=== PATIENT | male | born 1930 | race Caucasian/White ===

== ENCOUNTER → 2016-04-23 | Outpatient (CLI) | payer MEDICARE, OTHER ==
[~2016-04-23] MED LIST: AMILORIDE/HCTZ1 TAB PO; ASPIRIN 81M81 MG/TA2 PO; ASPIRIN E.C. 8181 MG PO; BETAPACE 80MG80 MG PO; CARDI-OMEGA1000 MG PO; COLACE 100100 MG/CAP PO; COREG 25MG25 MG/TAB PO; COREG CR20 MG PO; COUMADIN 22.5 MG/TAB PO; COUMADIN 3MG3 MG/TAB PO; CRESTOR 10MG10 MG PO; CRESTOR20 MG PO; EFFIENT10 MG PO; EXFORGE 10 MG-31 TAB PO; FOLIC ACID 11 MG/TA1 PO; FOLIC ACID800 MCG PO; GLUCOPHAGE500 MG/TAB PO; KEPPRA 500MG500 MG PO; KLOR-CON M2020 MEQ PO; LASIX 40MG TABL40 MG PO; NIASPAN1000 MG PO; NITROSTAT0.4 MG/TAB SL; OMEGA 31000 MG PO; TYLENOL 325MG325 MG PO; VASOTEC 2.2.5 MG/TAB PO; VASOTEC20 MG PO; ZYLOPRIM 300MG300 MG PO
[2016-04-23 10:29] LABS: INR 2.2 (0.8-3.0); PROTHROMBIN TIME 24.8 SECONDS (9.7-12.8)
== END ==
LOC: COL.LAB 09:24
PROVIDERS: Internal Medicine
DX: I48.0 Paroxysmal atrial fibrillation (principal)

== ENCOUNTER 2016-04-26 11:00 | Outpatient (RCR) | payer MEDICARE, OTHER | END 2016-04-29 08:46 | disposition still patient (30) | LOC: MKS.ESL.PT 11:00 | DX: M25.512 Pain in left shoulder (principal) | CPT/HCPCS: G8979-GP; G8980-GP; G8987-GP; G8988-GP ==

== ENCOUNTER → 2016-05-11 | Outpatient (REF) | LOC: ZLAB.WCH 11:38 | DX: Z02.89 Encounter for other administrative examinations (principal) ==

== ENCOUNTER → 2016-05-21 | Outpatient (CLI) | payer MEDICARE, OTHER ==
[2016-05-21 11:04] LABS: INR 2.1 (0.8-3.0); PROTHROMBIN TIME 24.2 SECONDS (9.7-12.8)
== END ==
LOC: COL.LAB 10:33
PROVIDERS: Internal Medicine
DX: I48.0 Paroxysmal atrial fibrillation (principal)

== ENCOUNTER → 2016-06-17 | Outpatient (CLI) | payer MEDICARE, OTHER ==
[2016-06-17 12:35] LABS: INR 2.6 (0.8-3.0); PROTHROMBIN TIME 29.5 SECONDS (9.7-12.8)
== END ==
LOC: COL.LAB 10:19
PROVIDERS: Internal Medicine
DX: I48.0 Paroxysmal atrial fibrillation (principal)

== ENCOUNTER → 2016-06-21 | Outpatient (CLI) | payer MEDICARE, OTHER | LOC: COL.VAS 08:32 | DX: I63.412 Cerebral infarction due to embolism of left middle cerebral artery (principal) ==

== ENCOUNTER → 2016-07-16 | Outpatient (CLI) | payer MEDICARE, OTHER ==
[2016-07-16 10:42] LABS: INR 2.6 (0.8-3.0); PROTHROMBIN TIME 29.7 SECONDS (9.7-12.8)
[2016-07-16 10:49] LABS: CREATININE, serum 1.33 mg/dL (0.66-1.25); MAGNESIUM 2.1 mg/dL (1.6-2.3); POTASSIUM 3.9 mmol/L (3.4-5.0)
== END ==
LOC: COL.LAB 09:43
PROVIDERS: Internal Medicine
DX: I25.10 Atherosclerotic heart disease of native coronary artery without angina pectoris (principal); I48.0 Paroxysmal atrial fibrillation; E11.9 Type 2 diabetes mellitus without complications

== ENCOUNTER → 2016-08-13 | Outpatient (CLI) | payer MEDICARE, OTHER ==
[2016-08-13 11:48] LABS: INR 2.1 (0.8-3.0); PROTHROMBIN TIME 23.8 SECONDS (9.7-12.8)
== END ==
LOC: COL.LAB 09:26
PROVIDERS: Internal Medicine
DX: I48.0 Paroxysmal atrial fibrillation (principal)

== ENCOUNTER → 2016-09-10 | Outpatient (CLI) | payer MEDICARE, OTHER ==
[2016-09-10 09:40] LABS: INR 2.5 (0.8-3.0); PROTHROMBIN TIME 28.2 SECONDS (9.7-12.8)
== END ==
LOC: COL.LAB 09:10
PROVIDERS: Internal Medicine
DX: I48.0 Paroxysmal atrial fibrillation (principal)

== ENCOUNTER → 2016-10-08 | Outpatient (CLI) | payer MEDICARE, OTHER ==
[2016-10-08 10:16] LABS: INR 2.4 (0.8-3.0); PROTHROMBIN TIME 27.5 SECONDS (9.7-12.8)
== END ==
LOC: COL.LAB 09:26
PROVIDERS: Internal Medicine
DX: I48.0 Paroxysmal atrial fibrillation (principal)

== ENCOUNTER → 2016-11-05 | Outpatient (CLI) | payer MEDICARE, OTHER ==
[2016-11-05 10:42] LABS: INR 2.4 (0.8-3.0); PROTHROMBIN TIME 27.7 SECONDS (9.7-12.8)
== END ==
LOC: COL.LAB 09:59
PROVIDERS: Internal Medicine
DX: I48.91 Unspecified atrial fibrillation (principal)

== ENCOUNTER → 2016-12-03 | Outpatient (CLI) | payer MEDICARE, OTHER ==
[2016-12-03 10:54] LABS: INR 2.5 (0.8-3.0); PROTHROMBIN TIME 28.8 SECONDS (9.7-12.8)
== END ==
LOC: COL.LAB 09:50
PROVIDERS: Internal Medicine
DX: I48.91 Unspecified atrial fibrillation (principal)

== ENCOUNTER → 2016-12-31 | Outpatient (CLI) | payer MEDICARE, OTHER ==
[2016-12-31 11:40] LABS: INR 2.1 (0.8-3.0); PROTHROMBIN TIME 24.1 SECONDS (9.7-12.8)
== END ==
LOC: COL.LAB 09:59
PROVIDERS: Internal Medicine
DX: I48.91 Unspecified atrial fibrillation (principal)

== ENCOUNTER → 2017-01-28 | Outpatient (CLI) | payer MEDICARE, OTHER ==
[2017-01-28 10:37] LABS: INR 2.5 (0.8-3.0)
== END ==
LOC: COL.LAB 10:06
PROVIDERS: Internal Medicine
DX: I48.0 Paroxysmal atrial fibrillation (principal)

== ENCOUNTER → 2017-02-14 | Outpatient (REF) | LOC: ZLAB.WCH 20:28 | DX: Z01.89 Encounter for other specified special examinations (principal) ==

== ENCOUNTER → 2017-03-25 | Outpatient (CLI) | payer MEDICARE, OTHER ==
[2017-03-25 10:28] LABS: INR 2.4 (0.8-3.0)
== END ==
LOC: COL.LAB 10:00
PROVIDERS: Internal Medicine
DX: I48.0 Paroxysmal atrial fibrillation (principal)

== ENCOUNTER → 2017-04-22 | Outpatient (CLI) | payer MEDICARE, OTHER ==
[2017-04-22 11:10] LABS: INR 2.4 (0.8-3.0); PROTHROMBIN TIME 28.4 SECONDS (9.7-12.8)
== END ==
LOC: COL.LAB 10:39
PROVIDERS: Internal Medicine
DX: I48.0 Paroxysmal atrial fibrillation (principal)

== ENCOUNTER → 2017-05-27 | Outpatient (CLI) | payer MEDICARE, OTHER ==
[2017-05-27 10:41] LABS: INR 2.7 (0.8-3.0); PROTHROMBIN TIME 31.6 SECONDS (9.7-12.8)
== END ==
LOC: COL.LAB 09:55
PROVIDERS: Internal Medicine
DX: I48.0 Paroxysmal atrial fibrillation (principal)

== ENCOUNTER → 2017-06-24 | Outpatient (CLI) | payer MEDICARE, OTHER ==
[2017-06-24 11:08] LABS: INR 2.3 (0.8-3.0); PROTHROMBIN TIME 26.6 SECONDS (9.7-12.8)
== END ==
LOC: COL.LAB 10:17
PROVIDERS: Internal Medicine
DX: I48.0 Paroxysmal atrial fibrillation (principal)

== ENCOUNTER 2017-06-27 09:14 | Emergency (ER) | payer MEDICARE, OTHER ==
[~2017-06-27] VITALS: Ht 180.3 cm; Wt 78.2 kg
[2017-06-27 09:30] VITALS: BP 127/56; PULSE 57; TEMP 98.9
[2017-06-27] MEDS ORDERED: AMOXICILLIN 8751 TAB PO (10:01)
== END 2017-06-27 10:13 | disposition home or self-care (01) ==
LOC: COL.ER 09:14
DX: S80.812A Abrasion, left lower leg, initial encounter (principal); L08.9 Local infection of the skin and subcutaneous tissue, unspecified; Z79.01 Long term (current) use of anticoagulants; Z79.82 Long term (current) use of aspirin; W22.8XXA Striking against or struck by other objects, initial encounter; Y92.009 Unspecified place in unspecified non-institutional (private) residence as the place of occurrence of the external cause

== ENCOUNTER → 2017-07-22 | Outpatient (CLI) | payer MEDICARE, OTHER ==
[~2017-07-22] MED LIST changes: +AMOXICILLIN 8751 TAB PO
[2017-07-22 10:30] LABS: INR 2.5 (0.8-3.0); PROTHROMBIN TIME 28.9 SECONDS (9.7-12.8)
== END ==
LOC: COL.LAB 10:01
PROVIDERS: Internal Medicine
DX: I48.0 Paroxysmal atrial fibrillation (principal)

== ENCOUNTER → 2017-08-19 | Outpatient (CLI) | payer MEDICARE, OTHER ==
[2017-08-19 09:52] LABS: INR 2.5 (0.8-3.0); PROTHROMBIN TIME 29.9 SECONDS (9.7-12.8)
== END ==
LOC: COL.LAB 09:14
PROVIDERS: Internal Medicine
DX: I48.0 Paroxysmal atrial fibrillation (principal)

== ENCOUNTER → 2017-09-16 | Outpatient (CLI) | payer MEDICARE, OTHER ==
[2017-09-16 10:38] LABS: INR 2.1 (0.8-3.0); PROTHROMBIN TIME 23.9 SECONDS (9.7-12.8)
== END ==
LOC: COL.LAB 09:12
PROVIDERS: Internal Medicine
DX: I48.0 Paroxysmal atrial fibrillation (principal)

== ENCOUNTER → 2017-10-07 | Outpatient (CLI) | payer MEDICARE, OTHER ==
[2017-10-07 09:52] LABS: INR 2.2 (0.8-3.0); PROTHROMBIN TIME 25.1 SECONDS (9.7-12.8)
== END ==
LOC: COL.LAB 09:29
PROVIDERS: Internal Medicine
DX: I48.91 Unspecified atrial fibrillation (principal)

== ENCOUNTER → 2017-10-28 | Outpatient (CLI) | payer MEDICARE, OTHER ==
[2017-10-28 11:24] LABS: INR 2.4 (0.8-3.0); PROTHROMBIN TIME 27.7 SECONDS (9.7-12.8)
== END ==
LOC: COL.LAB 10:55
PROVIDERS: Internal Medicine
DX: I48.0 Paroxysmal atrial fibrillation (principal)

== ENCOUNTER → 2017-11-06 | Outpatient (REF) | LOC: ZLAB.WCH 18:19 | DX: Z01.89 Encounter for other specified special examinations (principal) ==

== ENCOUNTER → 2017-11-25 | Outpatient (CLI) | payer MEDICARE, OTHER ==
[2017-11-25 10:26] LABS: INR 2.5 (0.8-3.0); PROTHROMBIN TIME 28.8 SECONDS (9.7-12.8)
== END ==
LOC: COL.LAB 10:01
PROVIDERS: Internal Medicine
DX: I48.91 Unspecified atrial fibrillation (principal)

== ENCOUNTER → 2017-12-23 | Outpatient (CLI) | payer MEDICARE, OTHER ==
[2017-12-23 10:19] LABS: INR 1.9 (0.8-3.0); PROTHROMBIN TIME 21.4 SECONDS (9.7-12.8)
== END ==
LOC: COL.LAB 09:48
PROVIDERS: Internal Medicine
DX: I48.0 Paroxysmal atrial fibrillation (principal)

== ENCOUNTER → 2018-01-20 | Outpatient (CLI) | payer MEDICARE, OTHER ==
[2018-01-20 10:45] LABS: INR 2.5 (0.8-3.0); PROTHROMBIN TIME 28.3 SECONDS (9.7-12.8)
== END ==
LOC: COL.LAB 10:03
PROVIDERS: Internal Medicine
DX: I48.0 Paroxysmal atrial fibrillation (principal)

== ENCOUNTER → 2018-02-17 | Outpatient (CLI) | payer MEDICARE, OTHER ==
[2018-02-17 10:41] LABS: INR 2.3 (0.8-3.0); PROTHROMBIN TIME 25.9 SECONDS (9.7-12.8)
== END ==
LOC: COL.LAB 09:59
PROVIDERS: Internal Medicine
DX: I48.0 Paroxysmal atrial fibrillation (principal)

== ENCOUNTER → 2018-03-17 | Outpatient (CLI) | payer MEDICARE, OTHER ==
[2018-03-17 11:17] LABS: INR 2.3 (0.8-3.0); PROTHROMBIN TIME 26.6 SECONDS (9.7-12.8)
== END ==
LOC: COL.LAB 10:23
PROVIDERS: Internal Medicine
DX: I48.91 Unspecified atrial fibrillation (principal)

== ENCOUNTER → 2018-04-02 | Outpatient (REF) | LOC: ZLAB.WCH 19:01 | DX: Z01.89 Encounter for other specified special examinations (principal) ==

== ENCOUNTER → 2018-04-15 | Outpatient (CLI) | payer MEDICARE, OTHER ==
[2018-04-15 11:15] LABS: INR 2.3 (0.8-3.0); PROTHROMBIN TIME 25.9 SECONDS (9.7-12.8)
== END ==
LOC: COL.LAB 10:24
PROVIDERS: Internal Medicine
DX: I48.91 Unspecified atrial fibrillation (principal)

== ENCOUNTER → 2018-05-12 | Outpatient (CLI) | payer MEDICARE, OTHER ==
[2018-05-12 11:23] LABS: INR 2.4 (0.8-3.0); PROTHROMBIN TIME 27.2 SECONDS (9.7-12.8)
== END ==
LOC: COL.LAB 10:16
PROVIDERS: Internal Medicine
DX: I48.91 Unspecified atrial fibrillation (principal)

== ENCOUNTER → 2018-06-09 | Outpatient (CLI) | payer MEDICARE, OTHER ==
[2018-06-09 11:03] LABS: PROTHROMBIN TIME 22.4 SECONDS (9.7-12.8)
== END ==
LOC: COL.LAB 10:03
PROVIDERS: Internal Medicine
DX: I48.91 Unspecified atrial fibrillation (principal)

== ENCOUNTER → 2018-07-07 | Outpatient (CLI) | payer MEDICARE, OTHER ==
[2018-07-07 10:45] LABS: INR 2.4 (0.8-3.0); PROTHROMBIN TIME 27.6 SECONDS (9.7-12.8)
== END ==
LOC: COL.LAB 10:02
PROVIDERS: Internal Medicine
DX: I48.91 Unspecified atrial fibrillation (principal)

== ENCOUNTER → 2018-08-04 | Outpatient (CLI) | payer MEDICARE, OTHER ==
[2018-08-04 10:25] LABS: PROTHROMBIN TIME 33.8 SECONDS (9.7-12.8)
== END ==
LOC: COL.LAB 09:48
PROVIDERS: Internal Medicine
DX: I48.91 Unspecified atrial fibrillation (principal)

== ENCOUNTER → 2018-08-25 | Outpatient (CLI) | payer MEDICARE, OTHER ==
[2018-08-25 10:29] LABS: INR 2.9 (0.8-3.0)
== END ==
LOC: COL.LAB 09:46
PROVIDERS: Internal Medicine
DX: I48.91 Unspecified atrial fibrillation (principal)

== ENCOUNTER → 2018-09-22 | Outpatient (CLI) | payer MEDICARE, OTHER ==
[2018-09-22 10:59] LABS: INR 3.1 (0.8-3.0); PROTHROMBIN TIME 37.9 SECONDS (9.7-12.8)
== END ==
LOC: COL.LAB 10:27
PROVIDERS: Internal Medicine
DX: I48.91 Unspecified atrial fibrillation (principal)

== ENCOUNTER → 2018-09-29 | Outpatient (CLI) | payer MEDICARE, OTHER ==
[2018-09-29 10:15] LABS: INR 2.1 (0.8-3.0); PROTHROMBIN TIME 25.3 SECONDS (9.7-12.8)
== END ==
LOC: COL.LAB 09:32
PROVIDERS: Internal Medicine
DX: I48.91 Unspecified atrial fibrillation (principal)

== ENCOUNTER → 2018-10-27 | Outpatient (CLI) | payer MEDICARE, OTHER ==
[2018-10-27 10:42] LABS: INR 2.5 (0.8-3.0); PROTHROMBIN TIME 29.9 SECONDS (9.7-12.8)
== END ==
LOC: COL.LAB 10:13
PROVIDERS: Internal Medicine
DX: I48.91 Unspecified atrial fibrillation (principal)

== ENCOUNTER → 2018-11-24 | Outpatient (CLI) | payer MEDICARE, OTHER ==
[2018-11-24 10:23] LABS: INR 2.5 (0.8-3.0); PROTHROMBIN TIME 29.8 SECONDS (9.7-12.8)
== END ==
LOC: COL.LAB 09:18
PROVIDERS: Internal Medicine
DX: I48.91 Unspecified atrial fibrillation (principal)

== ENCOUNTER → 2018-12-22 | Outpatient (CLI) | payer MEDICARE, OTHER ==
[2018-12-22 10:32] LABS: INR 3.1 (0.8-3.0); PROTHROMBIN TIME 37.2 SECONDS (9.7-12.8)
== END ==
LOC: COL.LAB 10:06
PROVIDERS: Internal Medicine
DX: I48.91 Unspecified atrial fibrillation (principal)

== ENCOUNTER → 2019-01-19 | Outpatient (CLI) | payer MEDICARE, OTHER ==
[2019-01-19 10:33] LABS: INR 3.1 (0.8-3.0)
== END ==
LOC: COL.LAB 10:05
PROVIDERS: Internal Medicine
DX: I48.91 Unspecified atrial fibrillation (principal)

== ENCOUNTER → 2019-01-26 | Outpatient (CLI) | payer MEDICARE, OTHER ==
[2019-01-26 10:36] LABS: INR 3.3 (0.8-3.0); PROTHROMBIN TIME 40.1 SECONDS (9.7-12.8)
== END ==
LOC: COL.LAB 09:47
PROVIDERS: Internal Medicine
DX: I48.91 Unspecified atrial fibrillation (principal)

== ENCOUNTER → 2019-02-02 | Outpatient (CLI) | payer MEDICARE, OTHER ==
[2019-02-02 10:14] LABS: PROTHROMBIN TIME 23.8 SECONDS (9.7-12.8)
== END ==
LOC: COL.LAB 09:49
PROVIDERS: Internal Medicine
DX: I48.91 Unspecified atrial fibrillation (principal)

== ENCOUNTER → 2019-02-09 | Outpatient (CLI) | payer MEDICARE, OTHER ==
[2019-02-09 10:35] LABS: INR 2.8 (0.8-3.0); PROTHROMBIN TIME 33.9 SECONDS (9.7-12.8)
== END ==
LOC: COL.LAB 09:39
PROVIDERS: Internal Medicine
DX: I48.91 Unspecified atrial fibrillation (principal)

== ENCOUNTER → 2019-02-16 | Outpatient (CLI) | payer MEDICARE, OTHER ==
[2019-02-16 10:15] LABS: INR 3.5 (0.8-3.0); PROTHROMBIN TIME 42.4 SECONDS (9.7-12.8)
== END ==
LOC: COL.LAB 09:40
PROVIDERS: Internal Medicine
DX: I48.91 Unspecified atrial fibrillation (principal)

== ENCOUNTER → 2019-02-23 | Outpatient (CLI) | payer MEDICARE, OTHER ==
[2019-02-23 09:46] LABS: INR 3.3 (0.8-3.0); PROTHROMBIN TIME 39.9 SECONDS (9.7-12.8)
== END ==
LOC: COL.LAB 09:22
PROVIDERS: Internal Medicine
DX: I48.91 Unspecified atrial fibrillation (principal)

== ENCOUNTER → 2019-03-02 | Outpatient (CLI) | payer MEDICARE, OTHER ==
[2019-03-02 10:26] LABS: INR 2.9 (0.8-3.0); PROTHROMBIN TIME 34.9 SECONDS (9.7-12.8)
== END ==
LOC: COL.LAB 09:54
PROVIDERS: Internal Medicine
DX: I48.91 Unspecified atrial fibrillation (principal)

== ENCOUNTER → 2019-03-09 | Outpatient (CLI) | payer MEDICARE, OTHER ==
[2019-03-09 10:06] LABS: INR 3.1 (0.8-3.0); PROTHROMBIN TIME 37.6 SECONDS (9.7-12.8)
== END ==
LOC: COL.LAB 09:34
PROVIDERS: Internal Medicine
DX: I48.91 Unspecified atrial fibrillation (principal)

== ENCOUNTER → 2019-03-16 | Outpatient (CLI) | payer MEDICARE, OTHER ==
[2019-03-16 11:21] LABS: INR 2.5 (0.8-3.0); PROTHROMBIN TIME 29.9 SECONDS (9.7-12.8)
== END ==
LOC: COL.LAB 10:37
PROVIDERS: Internal Medicine
DX: I48.91 Unspecified atrial fibrillation (principal)

== ENCOUNTER → 2019-05-11 | Outpatient (CLI) | payer MEDICARE, OTHER ==
[2019-05-11 10:53] LABS: INR 3.2 (0.8-3.0); PROTHROMBIN TIME 39.3 SECONDS (9.7-12.8)
== END ==
LOC: COL.LAB 10:06
PROVIDERS: Internal Medicine
DX: I48.91 Unspecified atrial fibrillation (principal)

== ENCOUNTER → 2019-05-18 | Outpatient (CLI) | payer MEDICARE, OTHER ==
[2019-05-18 10:55] LABS: PROTHROMBIN TIME 24.2 SECONDS (9.7-12.8)
== END ==
LOC: COL.LAB 09:52
PROVIDERS: Internal Medicine
DX: I48.91 Unspecified atrial fibrillation (principal)

== ENCOUNTER 2019-06-02 22:40 | Inpatient (IN) | payer MEDICARE, OTHER ==
[~2019-06-02] VITALS: Ht 180.3 cm; Wt 76.1 kg
[2019-06-02 23:18] LABS: BASO # 0.1 (0.0-0.2); BASO % 0.6 % (0.0-2.0); EOS # 0.1 (0.0-0.7); EOS % 1.3 % (0-4.0); GRAN # 5.7 (1.4-6.5); GRAN % 67.4 % (42.2-75.2); LYMPH # 1.6 (1.2-3.4); LYMPH % 19.1 % (20.0-51.0); MEAN CELL VOLUME 85 fl (80.0-100.0); MEAN CORPUSCULAR HGB CONC 29 g/dl (33.0-37.0); MEAN PLATELET VOLUME 10.6 fl (7.4-10.4); MONO % 11.4 % (1.7-9.3); PLATELET COUNT 198 K/mm3 (130-400); RED BLOOD COUNT 3.33 M/mm3 (4.20-5.60); REDCELL DISTRIBUTION WIDTH-CV 18.8 % (11.5-14.5)
[2019-06-02 23:19] LABS: HEMATOCRIT 28.2 % (42.0-52.0); HEMOGLOBIN 8.2 g/dl (13.5-18.0); MEAN CORPUSCULAR HEMOGLOBIN 25 pg (27.0-31.0)
[2019-06-02 23:21] LABS: INR 3.4 (0.8-3.0); PROTHROMBIN TIME 41.5 SECONDS (9.7-12.8)
[2019-06-02 23:26] LABS: ALBUMIN 3.5 gm/dL (3.5-5.0); BILIRUBIN,TOTAL 0.6 mg/dL (0.0-1.0); CALCIUM 8.9 mg/dL (8.4-10.2); CREATININE, serum 1.57 (0.66-1.25); TOTAL PROTEIN 6.1 gm/dL (6.4-8.2)
[2019-06-03] VITALS (7 sets, daily range): BP systolic 106–142; BP diastolic 49–72; PULSE 66–87; TEMP 97.6–99.1
[2019-06-03] MEDS ORDERED: KLOR-CON 1010 MEQ PO (00:52)
[2019-06-03] MEDS ORDERED: COREG 6.256.25 MG/TA PO (00:55)
[2019-06-03] MEDS ORDERED: SILVADENE CREAM1 TU TP (02:27)
[2019-06-03] MEDS ORDERED: MASON NATURAL2000 IU PO (02:30)
[2019-06-03 04:35] LABS: BASO # 0.1 (0.0-0.2); BASO % 0.5 % (0.0-2.0); EOS % 0.1 % (0-4.0); GRAN # 7.5 (1.4-6.5); GRAN % 72.2 % (42.2-75.2); LYMPH # 1.5 (1.2-3.4); LYMPH % 14.6 % (20.0-51.0); MEAN CELL VOLUME 86 fl (80.0-100.0); MEAN CORPUSCULAR HGB CONC 29 g/dl (33.0-37.0); MEAN PLATELET VOLUME 10.2 fl (7.4-10.4); MONO # 1.3 (0.1-0.6); MONO % 12.1 % (1.7-9.3); PLATELET COUNT 168 K/mm3 (130-400); RED BLOOD COUNT 3.24 M/mm3 (4.20-5.60); REDCELL DISTRIBUTION WIDTH-CV 18.9 % (11.5-14.5)
[2019-06-03 04:37] LABS: HEMATOCRIT 27.7 % (42.0-52.0); HEMOGLOBIN 8.1 g/dl (13.5-18.0); MEAN CORPUSCULAR HEMOGLOBIN 25 pg (27.0-31.0)
[2019-06-03 04:42] LABS: INR 3.1 (0.8-3.0); PROTHROMBIN TIME 37.9 SECONDS (9.7-12.8)
[2019-06-03 04:43] LABS: CALCIUM 9.1 mg/dL (8.4-10.2); CREATININE, serum 1.55 (0.66-1.25); MAGNESIUM 2.1 mg/dL (1.6-2.3)
--- NOTE | 2019-06-03 05:50 | NUR ---
Patient to the floor via ED bed at about 0130 this morning. Left leg externally rotated and shortened. Patient complains of pain with movement. Lyn catheter inserted with no difficulty. Clear, yellow urine flowing without obstruction. Bruising noted to left hip and small skin variance to left small that patient applies medication daily to help heal. Bilateral lower extremity edema noted to be +3. Patient hard of hearing, but alert and oriented. INT to right forearm. Refuses pain medication at this time. Will continue to monitor.
--- NOTE | 2019-06-03 08:00 | NUR ---
PATIENT IS A&O. VSS. PATIENT ADMITED FOR LLE HIP FX. LLE EXTERNALLY ROTATED. NO C/O PAIN AT REST. SCD' TO BLE. POSITIVE PEDAL PULSES. CAUSEY TO DD. PATIENT NPO TILL PHYSICIAN ROUNDS. IV TO INT. NOTED BLE CHRONIC EDEMA. PATIENT WAS ON COUMADIN FOR CARDIAC HX. AM INR OF 3.1 AFTER 1 DOSE OF VITAMIN K. HEAD TO TOE ASSESSMENT COMPLETE. NO FAMILY AT BEDSIDE. CALL LIGHT IN REACH.
--- NOTE | 2019-06-03 09:20 | NUR ---
HOSPITALIST TEAM ROUNDING, SEE ORDERS.
--- NOTE | 2019-06-03 09:28 | NUR ---
NIMCO met with the patient to discuss discharge plan. The patient lives in [place] with his , Blaire (ph#[phone]). He reports independence with ADLs prior to hospitalization and has a cane. The patient's PCP is Dr. Jeet Soto and he receives his medications through [facility]. He reports no difficulties obtaining his meds. The patient does not have advanced directives completed, but he was interested in obtaining a form for DPOA-HC. NIMCO provided. The patient had a left hip fracture. SW discussed the possibility of post-acute rehab upon discharge. The patient was interested in post-acute rehab. SW provided the patient with Medicare.gov's list of nursing homes in the [place] area. The patient states that his daughter, Piedad, will be arriving here soon from [place] and that he would like to discuss and think about the options with her. SW to continue to follow.
--- NOTE | 2019-06-03 09:32 | NUR ---
ECHO AT BEDSIDE
--- NOTE | 2019-06-03 10:13 | NUR ---
Initial visit; Patient thanked Custodial Aide for looking in on him and offering God's blessings.
--- NOTE | 2019-06-03 10:15 | NUR ---
ECHO AT BEDSIDE COMPLETE. PACEMAKER INNTERROGATE PER ORDERS.
--- NOTE | 2019-06-03 13:39 | NUR ---
pedal pulses +2, warm and dry. Pitting edema +3 left lower extremity and +2 right lower extremity. Call light within reach, bed in lowest position. No further needs.
--- NOTE | 2019-06-03 15:15 | NUR ---
REPORTED OFF TO DES TORREZ.
[2019-06-03 15:37] LABS: INR 2.8 (0.8-3.0); PROTHROMBIN TIME 33.2 SECONDS (9.7-12.8)
[2019-06-03 17:06] LABS: COLLECTION METHOD IN
[2019-06-03 17:14] LABS: MUCOUS Present /lpf; PH 5 (5-8); SQUAMOUS EPITHELIAL 0-2 /hpf; URINE APPEARANCE Clear; URINE BACTERIA None Seen /hpf; URINE BILIRUBIN Negative (NEGATIVE); URINE BLOOD 2+ (NEGATIVE); URINE COLOR Yellow; URINE GLUCOSE Negative (NEGATIVE); URINE KETONE Negative (NEGATIVE); URINE LEUKOCYTE ESTERASE Negative (NEGATIVE); URINE NITRATE Negative (NEGATIVE); URINE PROTEIN(semi-quant) Negative (NEGATIVE); URINE RBC 20-50 /hpf; URINE UROBILINOGEN Negative (NEGATIVE)
--- NOTE | 2019-06-03 18:53 | NUR ---
Patient has done well this afternoon. Repositioned for comfort, Denies pain otherwise. Family at bedside. Contacted Dr. Sanabria for diet order this afternoon, patient to be NPO after midnight for lexiscan in the AM. Cardiology was notified about increased troponin, no new orders. Denies further needs at this time. Reported off to security shift supervisor.
[2019-06-04] VITALS (15 sets, daily range): BP systolic 95–132; BP diastolic 39–65; PULSE 70–100; TEMP 97.9–98.9
--- NOTE | 2019-06-04 04:43 | NUR ---
Patient has rested well throughout the night. Denies the need for pain medication. Repositioned q2 hours. Refuses ice to hip. Has been NPO since midnight for Lexiscan this morning. INT to right forearm patent. +2 edema to BLE. Will continue to monitor.
[2019-06-04 07:48] LABS: BASO % 0.5 % (0.0-2.0); EOS % 0.4 % (0-4.0); GRAN # 5.2 (1.4-6.5); LYMPH # 1.3 (1.2-3.4); LYMPH % 15.9 % (20.0-51.0); MEAN CELL VOLUME 84 fl (80.0-100.0); MEAN CORPUSCULAR HGB CONC 30 g/dl (33.0-37.0); MEAN PLATELET VOLUME 10.5 fl (7.4-10.4); MONO # 1.3 (0.1-0.6); MONO % 16.8 % (1.7-9.3); PLATELET COUNT 188 K/mm3 (130-400); RED BLOOD COUNT 3.07 M/mm3 (4.20-5.60); REDCELL DISTRIBUTION WIDTH-CV 19.1 % (11.5-14.5)
[2019-06-04 07:49] LABS: HEMATOCRIT 25.8 % (42.0-52.0); HEMOGLOBIN 7.7 g/dl (13.5-18.0); MEAN CORPUSCULAR HEMOGLOBIN 25 pg (27.0-31.0)
[2019-06-04 07:59] LABS: CHOLESTEROL RISK RATIO 3.3; CREATININE, serum 1.36 (0.66-1.25); INR 1.7 (0.8-3.0); POTASSIUM 3.6 mmol/L (3.4-5.0); PROTHROMBIN TIME 19.6 SECONDS (9.7-12.8)
[2019-06-04 08:16] LABS: TROPONIN-I 0.207 ng/mL (0.000-0.035)
--- NOTE | 2019-06-04 09:00 | NUR ---
PATIENT GOING DOWN FOR LEXISCAN. GAVE PRN MORPHINE 2MG IV PER ORDERS. CONSENT ON CHART.
--- NOTE | 2019-06-04 10:37 | NUR ---
Pt returned from nuclear stress testing
--- NOTE | 2019-06-04 11:36 | NUR ---
NIMCO met with the patient, his , daughter (Piedad), and son (Jatinder) to follow up on post-acute rehab and preferences. The patient and his family are agreeable to post-acute rehab. NIMCO presented and explained the Patient Choice Form. The patient and his family chose 1) [facility]. 2) [facility]. Patient Choice Form signed by the patient and he was provided a copy. NIMCO consulted IPR Director, Shima. NIMCO contacted and faxed a referral to [facility]. NIMCO awaiting their screens.
--- NOTE | 2019-06-04 20:20 | NUR ---
Pt. laying in bed at this time. Pt. is A&OX3, assessment complete. INT to rt. forearm patent. Pt. denies pain at this time. Discussed blood transfusion reaction with the pt. at this time. Pt. voices understanding. Pt. denies further needs at this time. Call light within reach.
--- NOTE | 2019-06-04 23:36 | NUR ---
First unit of PRBC's started at this time.
[2019-06-05] VITALS (24 sets, daily range): BP systolic 103–132; BP diastolic 42–70; PULSE 44–96; TEMP 98.4–100.5
--- NOTE | 2019-06-05 06:05 | NUR ---
Blood transfusions completed. Pt. tolerated well. Pt. denies pain or other needs at this time.
[2019-06-05 06:14] LABS: HEMATOCRIT 31.1 % (42.0-52.0); HEMOGLOBIN 9.5 g/dl (13.5-18.0)
[2019-06-05 06:30] LABS: INR 1.4 (0.8-3.0); PROTHROMBIN TIME 16.4 SECONDS (9.7-12.8)
--- NOTE | 2019-06-05 07:30 | NUR ---
Patient resting in bed at this time, daughter at bedside. Patient is awaiting surgery this morning and denies pain or needs, call light within reach.
--- NOTE | 2019-06-05 09:30 | NUR ---
Patient returns to floor from PACU via bed. Patient is sleepy but rouses easily, answers questions appropriately when awake. Post op checks initiated. Incisions to left hip are dressed and CDI at this time. Patient denies pain or needs, call light within reach.
--- NOTE | 2019-06-05 15:48 | NUR ---
SW faxed updated for 04 Jun 2019 to 05 Jun 2019.
--- NOTE | 2019-06-05 18:34 | NUR ---
Patient currently resting in bed, family at bedside. Patient remains alert and oriented. Telemetry in place per order. Patient has requested PRN pain medication once, otherwise has reported pain as well controlled. CMS intact. Denies needs at this time, call light within reach.
--- NOTE | 2019-06-05 20:42 | NUR ---
Pt. laying in bed resting at this time. Pt. arousable to verbal stimuli. Pt. is A&OX3, assessment complete. IV to rt. hand patent, IV fluids infusing per orders. Dressing X3 to lt. thigh. Dressing CDI with gauze. Pt. denies pain or other needs, call light within reach.
[2019-06-06] VITALS (7 sets, daily range): BP systolic 11–124; BP diastolic 48–59; PULSE 52–91; TEMP 98.1–102.9
--- NOTE | 2019-06-06 08:00 | NUR ---
Patient resting in bed at this time. Patient remains alert and oriented, answers questions appropriately. Patient reports that pain is well controlled at this time. Incision to left hip is CDI, small amount of bruising is visible, no swelling noted. Lyn remains in place, urine is clear and yellow. Patient denies further needs at this time, call light within reach.
[2019-06-06 08:26] LABS: HEMATOCRIT 30.8 % (42.0-52.0); HEMOGLOBIN 9.4 g/dl (13.5-18.0)
--- NOTE | 2019-06-06 18:20 | NUR ---
Patient resting in bed at this time, patient remains alert and oriented, answers questions appropriately. Student nurse removed castillo per order with instructor, reports patient tolerated procedure well. Patient has voided and denies pain or needs. Call light within reach.
--- NOTE | 2019-06-06 18:36 | NUR ---
Patient's pain was well controlled throughout the day. walked in halls with physical therapy. castillo discontinued and patient has voided with no issues.
--- NOTE | 2019-06-07 00:20 | NUR ---
Patient doing well tonight. alert and oriented. thanh hose, scds and heel boots in place. x3 incisions CDI with bandaids and guaze and tegaderm. denies pain. INT to R hand patent and flushes. no further needs at this time. will continue to monitor.
[2019-06-07 03:21] VITALS: BP 116/51; PULSE 62; TEMP 98.7
[2019-06-07 06:48] LABS: HEMATOCRIT 28.5 % (42.0-52.0); HEMOGLOBIN 8.7 g/dl (13.5-18.0)
[2019-06-07 08:02] LABS: BASO % 0.4 % (0.0-2.0); EOS # 0.2 (0.0-0.7); EOS % 2.1 % (0-4.0); GRAN # 5.8 (1.4-6.5); GRAN % 70.1 % (42.2-75.2); LYMPH # 1.1 (1.2-3.4); LYMPH % 13.5 % (20.0-51.0); MEAN CELL VOLUME 85 fl (80.0-100.0); MEAN CORPUSCULAR HGB CONC 30 g/dl (33.0-37.0); MEAN PLATELET VOLUME 10.6 fl (7.4-10.4); MONO # 1.1 (0.1-0.6); MONO % 13.5 % (1.7-9.3); PLATELET COUNT 167 K/mm3 (130-400); RED BLOOD COUNT 3.42 M/mm3 (4.20-5.60); REDCELL DISTRIBUTION WIDTH-CV 18.6 % (11.5-14.5)
[2019-06-07 08:03] LABS: HEMOGLOBIN 8.7 g/dl (13.5-18.0); INR 1.5 (0.8-3.0); MEAN CORPUSCULAR HEMOGLOBIN 25 pg (27.0-31.0); PROTHROMBIN TIME 17.7 SECONDS (9.7-12.8)
[2019-06-07 08:07] LABS: CALCIUM 8.4 mg/dL (8.4-10.2); CREATININE, serum 0.98 (0.66-1.25); MAGNESIUM 2.1 mg/dL (1.6-2.3); POTASSIUM 3.5 mmol/L (3.4-5.0)
[2019-06-07] MEDS ORDERED: COREG 6.256.25 MG/TA PO (09:05)
[2019-06-07] MEDS ORDERED: ASPIRIN 32325 MG/TA1 PO (09:06)
[2019-06-07] MEDS ORDERED: LASIX 40MG TABL40 MG PO (09:08)
[2019-06-07] MEDS ORDERED: K-TAB20 PO (09:08)
[2019-06-07] MEDS ORDERED: TYLENOL 325MG325 MG PO (09:08)
[2019-06-07] MEDS ORDERED: DULCOLAX S10 MG/SUPP RC (09:09)
[2019-06-07] MEDS ORDERED: NORCO 325 MG-51 TAB PO (09:10)
[2019-06-07] MEDS ORDERED: GOOD NEIGH1200 MG/15 PO (09:10)
[2019-06-07 09:14] VITALS: BP 90/40; PULSE 78; TEMP 98
--- NOTE | 2019-06-07 11:16 | NUR ---
Functional Analyst attended clinical rounds with the team and patient cleared for discharge today. NIMCO met with patient who confirmed his first preference is still [facility]. NIMCO contacted IPR Director, Shima who advised she will admit patient today. NIMCO contacted [facility] to update on patient discharge plan and to thank him for reviewing referral. No additional needs at this time.
--- NOTE | 2019-06-07 11:20 | NUR ---
Patient alert and oriented, answers questions appropriately. See assessment. LLE with dressing CDI, no redness or drainage noted. No numbness or tingling to LLE, pulses intact. FWB with walker and gait belt. RD hose and SCDs in place. No c/o at this time.
[2019-06-07 12:19] VITALS: BP 105/44; PULSE 81; TEMP 98
[2019-06-07 12:48] VITALS: BP 105/44; PULSE 81; TEMP 98
--- NOTE | 2019-06-07 13:12 | NUR ---
Patient transferred to [facility] at 1310 per wheelchair. Report given to DES Mojica.
== END 2019-06-07 13:10 | DRG 481 ==
LOC: COL.ER 22:40 → SURG 06-03 00:07
PROVIDERS: Internal Medicine Adult Congenital Heart Disease; Nurse Practitioner; Nurse Practitioner Family; Orthopaedic Surgery; Physician Assistant; ADMIT Hospitalist
PROC: 0QS736Z Reposition Left Upper Femur with Intramedullary Internal Fixation Device, Percutaneous Approach (ICD-10-PCS; principal; 2019-06-05 08:00)
DX: S72.142A Displaced intertrochanteric fracture of left femur, initial encounter for closed fracture (principal); I48.20 Chronic atrial fibrillation, unspecified; I50.22 Chronic systolic (congestive) heart failure; I13.0 Hypertensive heart and chronic kidney disease with heart failure and stage 1 through stage 4 chronic kidney disease, or unspecified chronic kidney disease; M97.02XA Periprosthetic fracture around internal prosthetic left hip joint, initial encounter; I25.2 Old myocardial infarction; I25.10 Atherosclerotic heart disease of native coronary artery without angina pectoris; W18.30XA Fall on same level, unspecified, initial encounter; I08.3 Combined rheumatic disorders of mitral, aortic and tricuspid valves; Y93.9 Activity, unspecified; Y92.003 Bedroom of unspecified non-institutional (private) residence as the place of occurrence of the external cause; E78.5 Hyperlipidemia, unspecified; D63.1 Anemia in chronic kidney disease; N18.9 Chronic kidney disease, unspecified; Z79.01 Long term (current) use of anticoagulants; Z79.82 Long term (current) use of aspirin; Z95.1 Presence of aortocoronary bypass graft; Z95.810 Presence of automatic (implantable) cardiac defibrillator
CPT/HCPCS: 99223-AI; 99232-AI; 99233-AI; 99239; A9284; A9500; C1713; C1769; J0690; J1940; J2250; J2270; J2370; J2405; J2704; J2785; J3010; P9016

== ENCOUNTER 2019-06-07 11:29 | Inpatient (IN) | payer MEDICARE, OTHER ==
[~2019-06-07] VITALS: Ht 180.3 cm; Wt 78.9 kg
[~2019-06-07 11:29] MED LIST changes: +ASPIRIN 32325 MG/TA1 PO; +COREG 6.256.25 MG/TA PO; +DULCOLAX S10 MG/SUPP RC; +GOOD NEIGH1200 MG/15 PO; +K-TAB20 PO; +KLOR-CON 1010 MEQ PO; +MASON NATURAL2000 IU PO; +NORCO 325 MG-51 TAB PO; +SILVADENE CREAM1 TU TP
--- NOTE | 2019-06-07 13:05 | NUR ---
Patient arrived to [facility] and immediatly began working with therapy. Received report from DES Perez.
--- NOTE | 2019-06-07 15:34 | NUR ---
Patient is working with OT at this time. Both heels are boggy and blanchable with left heel having a small callous. No redness, or open areas observed by this nurse. He wears bilateral thanh hose.
[2019-06-07 18:00] VITALS: TEMP 98.8
[2019-06-07 18:01] VITALS: BP 120/51; PULSE 83; TEMP 98.8
--- NOTE | 2019-06-07 19:40 | NUR ---
PATIENT UP IN CHAIR DURING SHIFT CHANGE REPORT FROM DAY SHIFT NURSE. CHAIR ALARM ON. PATIENT PUT TO BED, BED ALARM ON. NO C/O REPORTED
--- NOTE | 2019-06-07 20:00 | NUR ---
REPORT RAIL SIGNAL WORKER WEAK FROM H/O CARPAL TUNNEL WITH NUMBNESS/TINGLING AT TIMES.
--- NOTE | 2019-06-08 03:00 | NUR ---
RESTING IN BED WITH EYES CLOSED, DOES NOT AWAKEN WHEN ROOM ENTERED, BED ALARM ON.
[2019-06-08 05:10] VITALS: BP 114/67; PULSE 65; TEMP 98.5
--- NOTE | 2019-06-08 10:54 | NUR ---
Patient reported to PT that his pain level was a 6/10, but when this nurse asked patient what he wanted for pain management he refused any meds. Will continue to monitor.
--- NOTE | 2019-06-08 11:09 | NUR ---
Patient passed his BIMS. This nurse called and spoke with Kirsten with ST to report that patient choked on a pill last evening. She suggested that we continue to monitor patient if he continues to have difficulty with swallowing to report this to her and she will do an eval at that time. This nurse voiced understanding.
--- NOTE | 2019-06-08 11:14 | NUR ---
Initial visit; Patient thanked Research Fellow for looking in on him and offering God's blessings. Research Fellow will follow up while patient is hospitalized.
--- NOTE | 2019-06-08 14:02 | NUR ---
University Teacher met with patient and patient's son Steven (ph#[phone]) to complete intake as patient is new to [facility]. Patient lives in [place] with his Blaire (ph#[phone]) and sees Dr. Soto for primary care. Patient has most of his medications mailed to him through [facility] and also utilizes [facility] as needed. Patient has a cane and no other DME. Patient does not have Advance Directives but was interested in completing them later this afternoon when his and daughter Piedad (ph#[phone]) were around. SW followed up later in the afternoon and met with patient, Blaire, and Piedad. Patient wants to complete DPOA-HC paperwork and states he wants to designate Piedad and his other son, Moreno. SW assisted patient in completing the form. SW and DARCY Power provided witness signature. SW provided original and copies to patient then placed a copy in patient's chart. SW to continue to follow to monitor for discharge needs.
[2019-06-08 18:02] VITALS: BP 120/75; PULSE 85; TEMP 98.3
--- NOTE | 2019-06-08 18:15 | NUR ---
Patient resting in bed, call light in reach and family by his side. Patient only ate 75% of his meal this evening. Family provided healthy snacks for their dad today banana and orange.
--- NOTE | 2019-06-08 21:45 | NUR ---
Woke patient for HS meds. Offered meds in applesauce and declined/swallowed 1 at a time without difficulty. Denies pain. Gordo hose removed and scd's and heel protectors applied. Heels slightly boggy light redness to right and reddness to left/unblanchable. Declines pain med at this time. Ice pack to left hip.
[2019-06-09 03:12] VITALS: BP 148/76; PULSE 79; TEMP 98.2
--- NOTE | 2019-06-09 03:40 | NUR ---
Patient calls for assist to the bathroom. Max assist LLE out of bed and legs into bed. Has difficulty sitting up on side of bed and mod assist to stand from toilet. Total assist with clean pullup on. Gait hesitant/slow with verbal cueing and walker. Patient hesitant to take pain meds and encouraged to take tylenol/given.
--- NOTE | 2019-06-09 05:00 | NUR ---
Patient rests with eyes closed.
--- NOTE | 2019-06-09 15:57 | NUR ---
Survey Research Associate met with patient to provide copy of team conference note. SW spoke with patient about likely need for stool riser or commode upon discharge and patient is in agreeance. NIMCO discussed scheduling a family meeting for next at 1300. Patient believes this will work and advised SW to contact his daughter, Piedad. NIMCO called Piedad who reports she is staying in town with patient's for now and that 06/17/2019 at 1300 should work for a meeting. NIMCO notified Shima, BRENDA Director of scheduled time. SW to continue to follow.
[2019-06-09 16:57] VITALS: BP 123/79; PULSE 86; TEMP 97.6
--- NOTE | 2019-06-09 20:31 | NUR ---
Shift summary: Bedside report from DES Morfin. Pt alert, pleasant, NOOKSACK, handed upper denture and fixodent, pt inserted himself. Pt c/o left eye watering and itching, see orders for eye drops. Left thigh incisions intact with some steris still intact, gross ecchymosis and edema. Left lateral posterior hip has 1 cm skin tear, likely from where tape/dressing was removed, superfical, fresh wound bed, applied silvadene cream and bandaid later. Pt's daughter and visited today, gentleman and daughter this jayme. She reports pt used to have lots more swelling in heels- report from prev nurse that heels are boggy, heels intact, no redness. Callous to right heel appears to be formed around an old crack in the skin, callous is shallow and white, non-tender to touch. Pt's prominences of ankles have blanchable redness. Heel protectors applied. Pt in bed at shift change, mattress in place, heels floated with poseys, SCDs to BLE, alarm on, call lt in reach. Report to DES Morfin.
--- NOTE | 2019-06-09 22:30 | NUR ---
Patient called for assist up to the bathroom. Has urgency to have bm and up to BSC with max assist LLE out of and into bed. Has soft pudding consistency brown bm and nurse wipes. Patient pulls pants up with steadying assist. Denies need for pain med.
--- NOTE | 2019-06-10 01:40 | NUR ---
Patient has been resting in bed with eyes closed. Respirations with ease.
[2019-06-10 05:00] VITALS: BP 136/53; PULSE 85; TEMP 97.9
[2019-06-10 08:03] LABS: BASO % 0.5 % (0.0-2.0); EOS # 0.2 (0.0-0.7); EOS % 2.6 % (0-4.0); GRAN # 5.4 (1.4-6.5); GRAN % 69.8 % (42.2-75.2); LYMPH # 1.2 (1.2-3.4); LYMPH % 15.1 % (20.0-51.0); MEAN CELL VOLUME 85 fl (80.0-100.0); MEAN CORPUSCULAR HGB CONC 30 g/dl (33.0-37.0); MEAN PLATELET VOLUME 10.6 fl (7.4-10.4); MONO # 0.9 (0.1-0.6); MONO % 11.6 % (1.7-9.3); PLATELET COUNT 227 K/mm3 (130-400); RED BLOOD COUNT 3.35 M/mm3 (4.20-5.60); REDCELL DISTRIBUTION WIDTH-CV 19.5 % (11.5-14.5)
[2019-06-10 08:10] LABS: HEMATOCRIT 28.6 % (42.0-52.0); HEMOGLOBIN 8.5 g/dl (13.5-18.0); MEAN CORPUSCULAR HEMOGLOBIN 25 pg (27.0-31.0)
[2019-06-10 08:13] LABS: CALCIUM 9.1 mg/dL (8.4-10.2); CREATININE, serum 1.03 (0.66-1.25); MAGNESIUM 2.2 mg/dL (1.6-2.3); POTASSIUM 4.2 mmol/L (3.4-5.0)
--- NOTE | 2019-06-10 13:36 | NUR ---
Admission QIM scores were reviewed by the team. Code of 3 chosen for walking 10 feet was determined by team discussion to be the most usual performance before interventions for this patient during the assessment period.--PD Halley
[2019-06-10 15:19] VITALS: BP 112/41; PULSE 70; TEMP 97.5
--- NOTE | 2019-06-10 21:19 | NUR ---
Pt took large pills one at a time with thin liquids, then several small pills with applesauce, less coughing. LLE incision SOCIAL INSURANCE ANALYST, silvadene cream to left small scabs, right heel callous unchanged, heels intact and blanchable without bogginess. Family visited. Bedside report to DES Toussaint. Pt in bed with alarm on, call lt in reach.
--- NOTE | 2019-06-11 01:00 | NUR ---
PT SITTING UP IN BED. RESTLESS. C/O GENERALIZED ACHE. LT SHOUDLER DISCOMFORT. SEE MAR FOR TRAMADOL GIVEN. SON STAYING THE NIGHT WITH PATIENT.
--- NOTE | 2019-06-11 06:25 | NUR ---
PT HAD UNEVENTFUL NIGHT. DENIES NEEDS FOR PAIN MEDICATION. ICE TO LT HIP IN THE NIGHT. CALL LIGHT IN REACH. BED ALARM SET.
--- NOTE | 2019-06-11 15:24 | NUR ---
Laser Systems Engineer met with patient to follow up before the weekend. Patient reports he is feeling sleepy and denies any questions or concerns at this time. SW to continue to follow.
--- NOTE | 2019-06-11 16:22 | NUR ---
Patient resting in bed at this time, with son by his side. Call light in reach, bed alarm on, thanh hose on, booties/heal protectors on, SCD's on and denied any questions at this time.
[2019-06-11 18:01] VITALS: BP 132/68; PULSE 90; TEMP 97.3
--- NOTE | 2019-06-11 19:03 | NUR ---
Patient attended all therapies today. Denied pain when this nurse asked him multiple times today, but when working with therapy he reported pain to them of 25/10. He was given prn tylenol, but reports that it is not very effective. He refuses the Hydrocodone. Daughter reports that he hasn't taken that one for a long time. Will continue to monitor.
--- NOTE | 2019-06-11 21:00 | NUR ---
SHIFT REPORT REC'D FROM AB SOLIS RN. EARLIER. PT RESTING IN BED. REPOSITIONED TO LT. SIDE SLIGHTLY. RD HOSE OFF. LOTION TO FEET AND LEGS, HEEL PROTECTORS AND SCD'S ON. CALL LIGHT IN REACH. BED ALARM SET. DENIES NEED FOR PAIN MEDICATION. SEE ASSESSMENT.
[2019-06-12 05:03] VITALS: BP 123/54; PULSE 82; TEMP 98.8
--- NOTE | 2019-06-12 08:21 | NUR ---
Report from DES Toussaint. Pt called for help repositioning for eating breakfast, pt indep with removing lids from food containers. Nurse donned pt's TEDs, yellow gripper socks, shoes and initiated pants up to the knees. Pt stood with mod assist with GB and FWW, steady assist for pulling up pants. Returned to sitting with cues, seat cushion in place, call lt in reach, alarm on, resumed breakfast. Nurse applied replicare dressings to matthew medial ankles with redness, left has 0.4cm scab. Barrier cream applied to matthew heels, right heel cont to have calloused crack, left heel has faint linear callous forming. Edema to BLE has decreased.
--- NOTE | 2019-06-12 08:25 | NUR ---
Silvadene cream to medial left lower small scabs.
--- NOTE | 2019-06-12 14:55 | NUR ---
and daughter visited this afternoon, taking laundry to do.
[2019-06-12 16:54] VITALS: BP 123/60; PULSE 83; TEMP 97.9
--- NOTE | 2019-06-12 18:38 | NUR ---
Pt toileted, returned to bed, heel protectors, yellow gripper socks, jaleesa boots and heels floated on pillow and SCDs to BLE, RD hose removed. Foam mattress in place, bed alarm on, call lt and urinal in reach.
--- NOTE | 2019-06-13 04:33 | NUR ---
Patient has rested well throughout the night. Denies pain when assessed. Utilizes urinal for voiding. Denies needs. Tolerates pills whole with water. Will continue to monitor patient.
[2019-06-13 05:07] VITALS: BP 124/61; PULSE 101; TEMP 97.4
--- NOTE | 2019-06-13 10:56 | NUR ---
Report from DES Goodwin. Pt was bedresting. Pt to chair after toileting this morning, assisted with donning TEDS, yellow gripper socks, heel protectors, matthew replicare dressings intact to medial ankle prominences- redness visible thru dressings. Pt mod assist to stand, cues for sitting, alarm on, call lt and urinal in reach. Son visiting. Pt set up assist for changing t-shirt after warm sponge bath wipes, nurse cleansed pt's back, pt donned deoderant and combed his hair, applied fixodent to upper dentures and inserted. BLE elevated in chair over pillow.
--- NOTE | 2019-06-13 11:57 | NUR ---
Ice pack to left hip. No steris left, ecchymosis present.
[2019-06-13 17:21] VITALS: BP 135/61; PULSE 90; TEMP 99.2
--- NOTE | 2019-06-13 18:19 | NUR ---
C/o pain in left medial ankle 12/29, provided tylenol PRN, pt's own spray, elevated, iced, pulses palpable but distal foot pale, able to wiggle toes, denies feeling in foot until distal small.
--- NOTE | 2019-06-13 19:00 | NUR ---
BEDSIDE SHIFT REPORT GIVEN BY JOSELITO Oakley RN. REPORTED PT STARTED HAVING LT MEDIAL FOOT PAIN ALONG WITH COLD TO TOUCH, MOTTLING & NUMBNESS. PULSES TO FOOT VERY WEAK AND DIFFICULT TO FIND. ATTEMPTED DOPPLER. UNABLE TO AUSC. PAIN INTERMITTLELY INCREASES TO 9/10 DOWN TO 4/10. NO INCREASE IN SWELLING.
--- NOTE | 2019-06-13 20:45 | NUR ---
PT STILL HAVING PAIN. GAVE NORCO 1 TAB. WILL CONTINUE TO ASSESS.
--- NOTE | 2019-06-13 21:00 | NUR ---
PT DOSING NOW. NO DISTRESS. FOOT APPEARANCE UNCHANGED.
--- NOTE | 2019-06-13 21:30 | NUR ---
Report to DES Toussaint. Palpated weak dorsalis pedis pulse in LLE, marked, moderate pulse to posterior tibia. Removed pillows elevating LLE and put foot of bed lower, L foot turned purplish and mottled. Pt was able to feel Breana placing fingertip between first and second toes. Pt wiggled toes better at 1815 than after shift change. Wrapped in warm blanket, Breana will continue to monitor.
--- NOTE | 2019-06-13 22:20 | NUR ---
2220-NOTIFIED LISS FAUSTIN REGARDING INCREASE IN LLE PAIN. MOTTLING INCREASE TO JUST ABOVE KNEE. CONTINUED NUMBNESS AND COLD TO TOUCH. 2230 LISS HERE TO ASSESS. USED DIFFERENT DOPPLER. STILL NO PULSES. 2245 PLAN TO TRANSFER PT TO [facility]. TRIMMER MACHINE NOTIFIED. STARTED INT NEEDLE TO LT WRIST 18g. AND ANOTHER TO RT WRIST 18G. AT 2320 STARTED HEPARIN GTT HIGH DOSE AND GAVE HEPARIN [id number] IV. SPOKE TO MELISSA DAUGHTER ON PHONE. UNDERSTANDS AND AGREES WITH PLAN. PTS BELONGINGS ARE TO GO WITH PT. - PACKED UP AT THIS TIME.
[2019-06-13 23:12] LABS: HEMATOCRIT 29.5 % (42.0-52.0); HEMOGLOBIN 8.8 g/dl (13.5-18.0); MEAN CELL VOLUME 87 fl (80.0-100.0); MEAN CORPUSCULAR HEMOGLOBIN 26 pg (27.0-31.0); MEAN CORPUSCULAR HGB CONC 30 g/dl (33.0-37.0); MEAN PLATELET VOLUME 9.7 fl (7.4-10.4); PLATELET COUNT 268 K/mm3 (130-400); RED BLOOD COUNT 3.41 M/mm3 (4.20-5.60); REDCELL DISTRIBUTION WIDTH-CV 21.2 % (11.5-14.5)
[2019-06-13 23:19] LABS: BILIRUBIN,TOTAL 0.9 mg/dL (0.0-1.0); CALCIUM 9.2 mg/dL (8.4-10.2); CREATININE, serum 1.22 (0.66-1.25); POTASSIUM 4.5 mmol/L (3.4-5.0); TOTAL PROTEIN 5.7 gm/dL (6.4-8.2)
[2019-06-13 23:48] VITALS: BP 148/69; PULSE 90; TEMP 98.7
--- NOTE | 2019-06-14 00:15 | NUR ---
EMS HERE TO CARE AID PT. MARCIAS WENT WITH PT.
--- NOTE | 2019-06-14 00:29 | NUR ---
CALLED REPORT TO FELIX NUNES AT [facility] IN ICU.
== END 2019-06-14 00:15 | disposition short-term general hospital (02) | DRG 559 ==
PROVIDERS: Nurse Practitioner Family; ADMIT Internal Medicine
DX: S72.142D Displaced intertrochanteric fracture of left femur, subsequent encounter for closed fracture with routine healing (principal); I21.4 Non-ST elevation (NSTEMI) myocardial infarction; I48.20 Chronic atrial fibrillation, unspecified; I13.0 Hypertensive heart and chronic kidney disease with heart failure and stage 1 through stage 4 chronic kidney disease, or unspecified chronic kidney disease; I50.22 Chronic systolic (congestive) heart failure; N17.9 Acute kidney failure, unspecified; W18.30XD Fall on same level, unspecified, subsequent encounter; I27.20 Pulmonary hypertension, unspecified; I99.8 Other disorder of circulatory system; D63.1 Anemia in chronic kidney disease; E78.5 Hyperlipidemia, unspecified; G93.9 Disorder of brain, unspecified; N18.9 Chronic kidney disease, unspecified; I08.3 Combined rheumatic disorders of mitral, aortic and tricuspid valves; I25.10 Atherosclerotic heart disease of native coronary artery without angina pectoris; F17.290 Nicotine dependence, other tobacco product, uncomplicated; H05.9 Unspecified disorder of orbit; Z79.82 Long term (current) use of aspirin; Z79.891 Long term (current) use of opiate analgesic; Z95.810 Presence of automatic (implantable) cardiac defibrillator; Z95.1 Presence of aortocoronary bypass graft
CPT/HCPCS: 99222-AI; 99231-AI; 99232-AI; 99239; J1644

== ENCOUNTER 2019-06-22 13:18 | Inpatient (IN) | payer MEDICARE, OTHER ==
[~2019-06-22] VITALS: Ht 180.3 cm; Wt 82.1 kg
[2019-06-22] MEDS ORDERED: ASPIRIN 81M81 MG/TA2 PO (16:22)
[2019-06-22] MEDS ORDERED: COREG12.5 MG PO (16:24)
[2019-06-22] MEDS ORDERED: VASOTEC 10M10 MG/TAB PO (16:26)
[2019-06-22] MEDS ORDERED: COUMADIN 22.5 MG/TAB PO (16:34)
--- NOTE | 2019-06-22 19:30 | NUR ---
Patient oriented to room, call light, alarm and safety. Assisted mod 1 assist with walker to bed and max assist with BLE into bed. See admission assessment. States he can't eat pureed diet-"can't stand to even look at it". Reviewed swallowing precautions to have chin down and tilt head to right side. HS meds all reviewed and given 1 at a time in applesauce, no couphing noted. Declines pain med. BLE elevated on pillow/heels floated and foot pillow heel protectors applied.
[2019-06-22 19:47] VITALS: BP 139/71; PULSE 84; TEMP 98.5
--- NOTE | 2019-06-22 20:47 | NUR ---
Patient arrived to room #340 via wheelchair and was transported from [facility] to [facility] via private car by daughter. This nurse received report from DES Stein at [facility] [phone]. Patient is a DNR, He had his last BM on 06/21/19 and it was a Large loose stool. He had one bloody stool on 06/16/19, but has not had any other ones since. He has left leg weakness so is a 1-2 max assist at times and moves very slow and uses a walker. He came over with pureed diet orders, but daughter is worried that patient will not eat well with this type of diet. She hopes that ST will work with him and look at doing a mechanical soft instead. ST will be evaluating patient tomorrow. Patient still has swelling to left lower leg and will need educated on keeping it elevated. He was evaluated by ST at [facility] today and he failed his swallow test. He has instructions to tuck his chin and turn his head to the right when swallowing to prevent aspiration. He demonstrated tonight that he was able to do this. Patient's right groin incision is healed. His heel to his left foot is reddened. Will continue to monitor. Reported off to night nurse.
--- NOTE | 2019-06-22 22:30 | NUR ---
Patient requests extra blanket and 2 warm blankets applied.
--- NOTE | 2019-06-23 03:00 | NUR ---
Patient has been resting with eyes closed. Respirations with ease.
[2019-06-23 03:53] VITALS: BP 114/65; PULSE 94; TEMP 97.9
[2019-06-23 07:47] LABS: INR 3.1 (0.8-3.0); PROTHROMBIN TIME 37.1 SECONDS (9.7-12.8)
[2019-06-23 16:30] VITALS: BP 112/55; PULSE 78; TEMP 98.5
--- NOTE | 2019-06-23 19:50 | NUR ---
PATIENT UP IN CHAIR DURING CHANGE OF SHIFT REPORT FROM DAY SHIFT NURSE, CHAIR ALARM ON, PATIENT'S SON IN ROOM VISITING.
--- NOTE | 2019-06-23 19:51 | NUR ---
Bedside report from DES Morfin. Pt calls appropriately, assisted OOB to chair, elevated BLE on pillow in recliner, foam heel cup to LLE with blister, lotion applied to BLE below knees. See new med orders. Family visited thru the day. Adv to mech soft from pureed diet, poor appetite but agreeable to supplemental shakes. Pleasant. Provided tylenol and KPAD for LLE knee pain, new orders to start lidocaine patch tomorrow. Bedside report to DES Briones.
--- NOTE | 2019-06-24 02:19 | NUR ---
PATIENT RESTING IN BED WITH EYES CLOSED, DOES NOT AWAKEN WHEN DOOR TO ROOM OPENED, BREATHING NONLABORED AND EVEN. BED ALARM ON.
--- NOTE | 2019-06-24 03:42 | NUR ---
PATIENT CONTINUES SLEEPING, BREATHING NONLABORED/EVEN, DOES NOT AWAKEN WHEN DOOR TO ROOM OPENS. BED ALARM ON.
[2019-06-24 05:24] VITALS: BP 115/58; PULSE 79; TEMP 97.5
--- NOTE | 2019-06-24 07:00 | NUR ---
PATIENT RESTING IN BED DURING CHANGE OF SHIFT REPORT GIVEN TO DAY SHIFT NURSE. BED ALARM ON.
[2019-06-24 09:54] LABS: INR 3.1 (0.8-3.0); PROTHROMBIN TIME 37.9 SECONDS (9.7-12.8)
--- NOTE | 2019-06-24 11:18 | NUR ---
SW met with the patient to complete initial intake, as the patient is new to [facility] and to present and review the IPR team conference note. The patient lives in [place] with his Blaire (ph#[phone]). He reports independence with ADLs and has a cane. He states that his daughter has access to some donated walkers and was going to try and get one for the patient. He also states that his son has two walkers that he could use. He states that if the walkers fall through, he would let SW know. The patient's PCP is Dr. Jeet Soto and he receives his medications at [facility] and [facility]. He reports no difficulties obtaining his meds. The patient's DPOA-HC is in EMR. His DPOA-HC is his oldest daughter (Piedad Juarez, ph#[phone]) or son (Moreno Davis, ph#[phone]). NIMCO then reviewed the IPR Team Conference Note and the team's recommendation to re-eval next Friday. The patient was in agreeance to the plan. NIMCO also discussed setting up a family meeting for next Friday, 06/29, at 1345. The patient reports that he will check with his and oldest daughter about this. SW to continue to follow.
[2019-06-24 18:10] VITALS: BP 102/44; PULSE 77; TEMP 98.4
--- NOTE | 2019-06-24 20:07 | NUR ---
Bedside report to DES Toussaint. Son visiting, pt in chair with call lt in reach, yellow gripper socks in place, heel protector to Left.
--- NOTE | 2019-06-25 05:00 | NUR ---
ASSISTED PT TO BR WITH WALKER. INCONTINENT MOD AMT BLOODY STOOL. PT DENIES DIZZINESS AT THIS TIME.
[2019-06-25 05:10] VITALS: BP 82/34; PULSE 72; TEMP 97.2
--- NOTE | 2019-06-25 05:19 | NUR ---
NOTIFIED LAB TO DRAW BLOOD NOW.
[2019-06-25 05:23] VITALS: BP 88/36
[2019-06-25 05:33] VITALS: BP 76/41
--- NOTE | 2019-06-25 05:33 | NUR ---
#20G IV STARTED ON LT WRIST. LAB HERE TO DRAW BLOOD. BP LOW. FEET UP HEAD DOWN. PT RELATES " I DONT FEEL BAD NOW". SEE VITALS. LOW BP.
[2019-06-25 05:39] LABS: BASO % 0.5 % (0.0-2.0); EOS # 0.1 (0.0-0.7); EOS % 1.9 % (0-4.0); GRAN # 4.7 (1.4-6.5); LYMPH # 1.7 (1.2-3.4); LYMPH % 22.2 % (20.0-51.0); MEAN CELL VOLUME 92 fl (80.0-100.0); MEAN CORPUSCULAR HGB CONC 29 g/dl (33.0-37.0); MEAN PLATELET VOLUME 10.6 fl (7.4-10.4); PLATELET COUNT 220 K/mm3 (130-400); RED BLOOD COUNT 2.51 M/mm3 (4.20-5.60); REDCELL DISTRIBUTION WIDTH-CV 22.2 % (11.5-14.5)
--- NOTE | 2019-06-25 05:39 | NUR ---
VS [id number]%. PT DENIES ANY COMPLAINTS. WAITING FOR LAB RESULTS.
[2019-06-25 05:40] VITALS: BP 76/41; PULSE 87; TEMP 97.6
[2019-06-25 05:45] LABS: CALCIUM 8.5 mg/dL (8.4-10.2); CREATININE, serum 0.92 (0.66-1.25); MAGNESIUM 2.1 mg/dL (1.6-2.3); POTASSIUM 4.9 mmol/L (3.4-5.0)
[2019-06-25 05:55] LABS: HEMATOCRIT 23.1 % (42.0-52.0); HEMOGLOBIN 6.6 g/dl (13.5-18.0); INR 2.9 (0.8-3.0); MEAN CORPUSCULAR HEMOGLOBIN 26 pg (27.0-31.0); PROTHROMBIN TIME 35.4 SECONDS (9.7-12.8)
--- NOTE | 2019-06-25 05:58 | NUR ---
DR KHAN NOTIFIED OF PT STATUS. [facility] IPR, TRANSFER TO ICU. NS STARTED BOLUS TO LT WRIST IV. MELISSA DAUGHTER NOTIFIED OF TRANSFER.
[2019-06-25 06:03] VITALS: BP 70/39; PULSE 76; TEMP 97.1
[2019-06-25 06:10] VITALS: BP 88/37; PULSE 106
--- NOTE | 2019-06-25 06:20 | NUR ---
TRANSFERRED TO ICU-7. REPORT GIVEN TO ANDREW NUNES. NO OTHER QUESTIONS. PT AWAKE AND ALERT. PTS QUESTIONS ANSWERED AT THIS TIME.
== END 2019-06-25 06:30 | disposition critical access hospital (66) | DRG 560 ==
PROVIDERS: ADMIT Internal Medicine
DX: S72.142D Displaced intertrochanteric fracture of left femur, subsequent encounter for closed fracture with routine healing (principal); I48.20 Chronic atrial fibrillation, unspecified; I50.22 Chronic systolic (congestive) heart failure; K92.2 Gastrointestinal hemorrhage, unspecified; N17.9 Acute kidney failure, unspecified; I13.0 Hypertensive heart and chronic kidney disease with heart failure and stage 1 through stage 4 chronic kidney disease, or unspecified chronic kidney disease; N18.9 Chronic kidney disease, unspecified; D63.1 Anemia in chronic kidney disease; I95.9 Hypotension, unspecified; W18.30XD Fall on same level, unspecified, subsequent encounter; E78.5 Hyperlipidemia, unspecified; I08.3 Combined rheumatic disorders of mitral, aortic and tricuspid valves; I25.10 Atherosclerotic heart disease of native coronary artery without angina pectoris; I25.2 Old myocardial infarction; H05.9 Unspecified disorder of orbit; F17.210 Nicotine dependence, cigarettes, uncomplicated; Z79.82 Long term (current) use of aspirin; Z79.01 Long term (current) use of anticoagulants; Z79.891 Long term (current) use of opiate analgesic; Z95.1 Presence of aortocoronary bypass graft; Z91.81 History of falling
CPT/HCPCS: 99222-AI; 99239; J7030

== ENCOUNTER 2019-06-25 06:15 | Inpatient (IN) | payer MEDICARE, OTHER ==
[2019-06-25] VITALS (144 sets, daily range): BP systolic 73–109; BP diastolic 34–51; PULSE 19–92; TEMP 97.5–97.7; O2SAT 77–100
[~2019-06-25] VITALS: Ht 180.3 cm; Wt 81.3 kg
[~2019-06-25 06:15] MED LIST changes: +COREG12.5 MG PO; +VASOTEC 10M10 MG/TAB PO
--- NOTE | 2019-06-25 06:15 | NUR ---
Arrived to the unit via stretcher; patient alert and oriented. Denies any pain or dizziness. Attached to all monitors. Hypotensive with BP systolics in the 70's. Fluid bolus currenlty running.
--- NOTE | 2019-06-25 07:00 | NUR ---
REPORT RECEIVED FROM DES STAUFFER. LEVOPHED TO BE ADDED AT THIS TIME.
--- NOTE | 2019-06-25 08:10 | NUR ---
CENTRAL LINE BEING PLACED AT THIS TIME BY DR. HUA, CUSTOMER DATA TECHNICIAN
--- NOTE | 2019-06-25 09:55 | NUR ---
[facility] is present to transport the patient to [facility] for further care. No additional needs.
--- NOTE | 2019-06-25 10:30 | NUR ---
PATIENT LEAVES WITH [facility] AT THIS TIME. REPORT GIVEN TO EMS CREW. ALL QUESTIONS ANSWERED. DAUGHTER, MELISSA, PRESENT AT THIS TIME.
--- NOTE | 2019-06-25 10:40 | NUR ---
REPORT GIVEN TO DES JORGENSEN AT [facility].
== END 2019-06-25 10:30 | disposition short-term general hospital (02) | DRG 377 ==
LOC: ICU 06:15
PROVIDERS: ADMIT Internal Medicine
PROC: 05HM33Z Insertion of Infusion Device into Right Internal Jugular Vein, Percutaneous Approach (ICD-10-PCS; principal; 2019-06-25)
DX: K92.2 Gastrointestinal hemorrhage, unspecified (principal); R57.8 Other shock; F17.200 Nicotine dependence, unspecified, uncomplicated; Z95.1 Presence of aortocoronary bypass graft; Z95.810 Presence of automatic (implantable) cardiac defibrillator; Z87.820 Personal history of traumatic brain injury; Z79.82 Long term (current) use of aspirin; Z79.02 Long term (current) use of antithrombotics/antiplatelets
CPT/HCPCS: A4314; C9132; J3430; J7030; J7060; P9016